=== PATIENT | female | born 2000 | race Caucasian/White ===

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

== ENCOUNTER 2022-05-06 20:03 | Emergency (ER) | payer OTHER ==
[2022-05-06 20:52] LABS: HEMOGLOBIN 11.7 gm/dl (12.3-15.3); RED BLOOD COUNT 3.78 M/UL (4.00-5.10); WHITE BLOOD COUNT 17.9 K/UL (4.5-11.0)
[2022-05-06 21:39] LABS: BUN/CREATININE RATIO 6 (0-10)
[2022-05-06] MEDS ORDERED: AMOXICILLIN500 MG PO (23:17)
== END 2022-05-06 23:25 | disposition home or self-care (01) ==
LOC: ER1 20:03
PROVIDERS: Family Medicine; Nurse Practitioner
DX: O26.812 Pregnancy related exhaustion and fatigue, second trimester (principal); O23.42 Unspecified infection of urinary tract in pregnancy, second trimester; N39.0 Urinary tract infection, site not specified; O99.322 Drug use complicating pregnancy, second trimester; O99.282 Endocrine, nutritional and metabolic diseases complicating pregnancy, second trimester; E87.6 Hypokalemia; O99.332 Smoking (tobacco) complicating pregnancy, second trimester; F17.290 Nicotine dependence, other tobacco product, uncomplicated; Z91.018 Allergy to other foods; Z3A.25 25 weeks gestation of pregnancy
CPT/HCPCS: 80053; 80076; 80307; 81001; 82550; 82553; 84484; 84702; 85025; 93005; 96360; 99284

== ENCOUNTER 2022-07-14 20:20 | Observation (INO) | payer OTHER ==
[2022-07-14 23:06] LABS: HEMOGLOBIN 11.2 gm/dl (12.3-15.3); RED BLOOD COUNT 3.98 M/UL (4.00-5.10); WHITE BLOOD COUNT 12.5 K/UL (4.5-11.0)
[2022-07-14 23:20] LABS: BUN/CREATININE RATIO 12 (0-10)
[2022-07-15 10:17] LABS: HEMOGLOBIN 10.5 gm/dl (12.3-15.3); RED BLOOD COUNT 3.68 M/UL (4.00-5.10); WHITE BLOOD COUNT 12.3 K/UL (4.5-11.0)
[2022-07-15 10:37] LABS: BUN/CREATININE RATIO 15 (0-10)
[2022-07-16 09:09] LABS: URINE TOTAL PROTEIN 765 mg/dl
[2022-07-16 10:24] LABS: HEMOGLOBIN 10.4 gm/dl (12.3-15.3); RED BLOOD COUNT 3.68 M/UL (4.00-5.10); WHITE BLOOD COUNT 12.2 K/UL (4.5-11.0)
[2022-07-16 10:43] LABS: BUN/CREATININE RATIO 18 (0-10)
== END 2022-07-16 13:29 | disposition other institution (70) ==
LOC: GENOP 20:20 → OB 07-15 09:06
PROVIDERS: Obstetrics & Gynecology; ADMIT Obstetrics & Gynecology
DX: O14.93 Unspecified pre-eclampsia, third trimester (principal); O30.033 Twin pregnancy, monochorionic/diamniotic, third trimester; O99.323 Drug use complicating pregnancy, third trimester; F15.10 Other stimulant abuse, uncomplicated; Z3A.34 34 weeks gestation of pregnancy
CPT/HCPCS: 36415; 59025; 76815; 80053; 80307; 81001; 82247; 82248; 82570; 83615; 84112; 84156; 84550; 85025; 85379; 85384; 85610; 85730; G0378; Q0177

== ENCOUNTER 2022-07-25 21:53 | Observation (INO) | payer OTHER ==
[~2022-07-25] VITALS: Ht 172.7 cm; Wt 69.9 kg
[2022-07-25 22:40] LABS: HEMOGLOBIN 11.4 gm/dl (12.3-15.3); RED BLOOD COUNT 4.09 M/UL (4.00-5.10)
[2022-07-25 22:59] LABS: BUN/CREATININE RATIO 15 (0-10)
[2022-07-27] MEDS ORDERED: BACTRIM DS TAB1 EACH PO (10:46)
[2022-07-27] MEDS ORDERED: PERCOCET 5/325 T1 EA PO (10:46)
[2022-07-27 12:03] LABS: HEMOGLOBIN 10.6 gm/dl (12.3-15.3); RED BLOOD COUNT 3.87 M/UL (4.00-5.10)
[2022-07-27 12:09] LABS: WHITE BLOOD COUNT 16.7 K/UL (4.5-11.0)
== END 2022-07-27 15:50 | disposition home or self-care (01) ==
LOC: ER1 21:53 → CDU 07-26 02:57 → MED SURG 4 07-26 04:06
PROVIDERS: Family Medicine; ADMIT Obstetrics & Gynecology
DX: O85 Puerperal sepsis (principal); O14.95 Unspecified pre-eclampsia, complicating the puerperium; Z20.822 Contact with and (suspected) exposure to COVID-19
CPT/HCPCS: 36415; 71045; 80053; 81001; 83605; 83690; 85025; 87040; 87086; 93970; 96365; 96367; 96374; 96375; 96376; 99285; G0378; J1580; J1885; J2405; Q9967; U0002